=== PATIENT | female | born 1940 | race Caucasian/White ===

== ENCOUNTER 2016-12-17 12:47 | Day surgery (SDC) | payer MEDICARE ==
[~2016-12-17] VITALS: Ht 160 cm; Wt 78.9 kg
[~2016-12-17 12:47] MED LIST: 0.9% Sodium Chloride 1,000 ML IV PRN; CALC-190 PO; CHOL200049 PO; LACTOFERRIN PO; NITR0.4T6 SL; PANT40TA3 PO; Sodium Chloride LOK Flush 10 mL Syringe IV PRN; [UNRECOGNIZED DRUG - CODE] PO; [UNRECOGNIZED DRUG - OTHER] PO; amlodipine PO; fentaNYL-PF 50 mCg/mL 2 mL Inj IVPUSH PRN
[2016-12-17 13:47] VITALS: BP 157/65; PULSE 63; RESP 16; O2SAT 100
[2016-12-17] MEDS ORDERED: MULT-666 PO (13:55)
--- NOTE | 2016-12-17 15:23 | PCM.ENDEGD ---
EGD Date of Service: Dec 17, 2016 Physician Nathan Rodas MD Pre Procedure Diagnosis: Anemia Post Procedure Dx & Findings: Esophageal ulcer with scarring, fundic polyps, gastritis Procedure Esophagogastroduodenoscopy PROCEDURE IN DETAIL: After proper sedation, Olympus video endoscope was inserted into patient's mouth and esophagus was successfully intubated. Scope introduced esophagus. Esophagus showed normal shiny whitish mucosa consistent with squamous cell component. Z line was at 40 cm from the incisors. 3 cm hiatal hernia noted. Mild irregularity noted. There was 1.5 cm healing ulcer with surrounding scarring. Z line was irregular as well. Biopsies done at the healing ulcer site as well as the surrounding irregularity of the Z line. Scope further advanced to the stomach. Stomach showed atrophy redness consistent with gastritis. Biopsies done. Patient had multiple fundic polyps from the fundus to the mid body of the stomach. The largest one was about 1.5 cm in size. Sampling biopsies done.. Cardia fundus body antrum pylorus were all visualized. Retroflexion was done. Stomach was easily inflated and deflatable using air. Scope further advanced to the distal duodenum. Duodenum revealed normal villous structures with normal appearing folds without any mass ulcer erosion. 5 biopsies done to rule out celiac disease. Impression Hiatal hernia Irregular Z line with healing esophageal ulcer with surrounding scarring - most likely the cause of the anemia. Fundic polyp Gastritis Recommendation Await biopsies Decrease Protonix to 40 mg once a day Presedation Assessment Risks and Benefits Informed consent was obtained from the patient after all risks and benefits including but not limited to drug reaction, infection, pain, bleeding, perforation, as well as alternatives were discussed. Patient monitoring Continuous pulse oximetry, cardiac monitoring, blood pressure monitoring, IV access, and oxygen at 2L per nasal cannula. Periprocedural Fentanyl: Fentanyl 75mcg Incrementally Midazolam: Midazolam 4mg Incrementally Complications There were no periprocedural complications identified. Post Procedure Plan Post Procedure Recommendations 1. Restrict activities today. 2. Resume normal activities in the morning. 3. Resume medications. 4. GERD behavioral modification: - Avoid fatty, acidic, spicy, large meals - Do not lie down after meals - Do not eat or drink anything for at least 2 1/2 hours before going to bed at night - Discontinue tobacco and alcohol - Decrease or avoid caffeine - Avoid chocolate and mints - Decrease weight - Avoid aspirin and non steroidal anti-inflammatory agents (NSAID) such as Aleve, Advil, Mobic, Naproxen, Ibuprofen, etc 5. Add proton pump inhibitor. Take 30 minutes before 1st meal of the day. 6. Patient informed of normal post procedure side effects as bloating, drowsiness, blood streaking in the stool 7. If gastric biopsy reveal H.pylori, continue with appropriate treatment 8. If small bowel biopsy reveals celiac, continue with appropriate treatment 9. Please don't hesitate to call me with any questions Nathan Rodas MD Dec 17, 2016 15:23
--- NOTE | 2016-12-17 15:26 | PCM.ENDCOL ---
Colonoscopy Date of Service: Dec 17, 2016 Physician Nathan Rodas MD Pre Procedure Diagnosis: Screening anemia Post Procedure Dx & Findings: Polyp hemorrhoids diverticulosis AVM Procedure Colonoscopy PROCEDURE IN DETAIL: Prep adequate Withdrawal time 15 minutes After unremarkable rectal examination the Olympus video colonoscope was inserted patient's anal canal and was advanced to cecum. Landmarks were identified including the ileocecal valve and appendiceal orifice. Scope further advanced to the terminal ileum. Visualized terminal ileum showed normal villous structures without ulcer or mass erosions. Advanced 8 cm. Scope was withdrawn systematically. Visualized colonic mucosa showed healthy shiny mucosa with normal healthy-appearing vasculature. In the cecum, there was a 1 mm AVM. No bleeding noted. In the ascending colon, there was a 1 mm polyp which was completely physical forceps. The transverse colon there was a 3 mm polyp which was removed completely using cold snare. In the sigmoid colon and to some extent the proximal descending colon, several small to medium diverticuli noted. In the rectum retroflexion was done which showed hemorrhoids. Anal canal was inspected carefully on the way out and hemorrhoids noted. Impression AVM 1 Polyp 2 status post complete removal Diverticuli Hemorrhoids Normal terminal ileum Recommendation Repeat colonoscopy 5 years Diverticular diet Presedation Assessment Risks and Benefits Informed consent was obtained from the patient after all risks and benefits including but not limited to drug reaction, infection, pain, bleeding, perforation, as well as alternatives were discussed. Patient monitoring Continuous pulse oximetry, cardiac monitoring, blood pressure monitoring, IV access, and oxygen at 2L per nasal cannula. Complications There were no periprocedural complications identified. Post Procedure Plan Post Procedure Recommendations 1. Restrict activities today. 2. Resume normal activities in the morning. 3. Resume medications. 4. Patient informed of normal post procedure side effects as bloating, drowsiness, blood streaking in the stool. 5. average risk CRCS. If colon polyps come back as: -Hyperplastic- can repeat colonoscopy in 10 years -Tubular adenoma- repeat colonoscopy in 5 years -Tubulovillous/villous adenoma- repeat colonoscopy in 3 years -If any dysplasia- return to clinic as soon as possible 6. Please don't hesitate to call me with any questions. Nathan Rodas MD Dec 17, 2016 15:26
[2016-12-17 15:27] VITALS: BP 163/72; PULSE 77; RESP 16; O2SAT 100
[2016-12-17 15:39] VITALS: BP 156/71; PULSE 72; RESP 16; O2SAT 96
[2016-12-17 15:45] VITALS: BP 158/74; PULSE 75; RESP 16; O2SAT 94
--- NOTE | 2016-12-20 17:26 | PATH ---
SURGICAL PATHOLOGY Attending Physician:Nathan Rodas M.D. CASE STATUS: Signed Out PATIENT NAME: KAREN COREAS PID: [id number] : 1940 DATE COLLECTED:12/17/2016 00:00 SPECIMEN: 1: Duodenum, Biopsy 2: Stomach, Polyp, Biopsy 3: Gastric, Biopsy 4: Esophagus, Biopsy 5: Colon, Polyp 6: Colon, Polyp CLINICAL HISTORY: 1). DUODENUM BIOPSY 2). FUNDAL POLYPS 3). GASTRIC BIOPSY (RULE OUT H.PYLORI) 4). DISTAL ESOPHAGUS 5). ASCENDING COLON POLYP X1 6). TRANSVERSE COLON POLYP FINAL DIAGNOSIS: 1. Duodenum, Biopsy: Portions of duodenal mucosa with no diagnostic abnormality. Negative for active inflammation, features of sprue, dysplasia, and malignancy. 2. Fundal Polyp, Biopsy: Portions of fundic gland polyp. Negative for dysplasia and malignancy. 3. Gastric Biopsy: Portions of gastric antral and body-type mucosa with mild chronic gastritis. No definite H. pylori organisms identified by H&E stain. Negative for intestinal metaplasia, dysplasia, and malignancy. Immunohistochemistry studies pending; results will be reported as an addendum. 4. Distal Esophagus, Biopsy: Squamocolumnar junctional mucosa involved by intestinal metaplasia, consistent with Ventura's metaplasia, in the appropriate clinical and imaging setting. Negative for dysplasia and malignancy. 5. Ascending Colon Polyp, Biopsy: Portions of tubular adenoma x2; negative for high-grade dysplasia. Superficial portion of colorectal mucosa x1 with no diagnostic abnormality. 6. Transverse Colon, Polyp, Biopsy: Tubular adenoma; negative for high-grade dysplasia. ICD10: K63.5 GROSS DESCRIPTION: The specimen is received in six formalin filled containers labeled with the patient's name. 1). The specimen is labeled "duodenum" and consists of 2 portions of tissue which aggregate to 0.3 x 0.2 x 0.2 CM. The specimen is entirely submitted in cassette 1A. 2). The specimen is labeled "fundal polyp" and consists of 3 portions of tissue which aggregate to 0.3 x 0.3 x 0.2 CM. The specimen is entirely submitted in cassette 2A. 3). The specimen is labeled "gastric" and consists of 2 portions of tissue which aggregate to 0.3 x 0.3 x 0.2 CM. The specimen is entirely submitted in cassette 3A. 4). The specimen is labeled "distal esophagus" and consists of 2 portions of tissue which aggregate to 0.2 x 0.2 x 0.2 CM. The specimen is entirely submitted in cassette 4A. 5). The specimen is labeled "ascending colon polyp" and consists of 3 extremely tiny portions of tissue which aggregate to 0.1 x 0.1 x 0.1 CM. The specimen is entirely submitted in cassette 5A. 6). The specimen is labeled "transverse colon polyp" and consists of a 0.3 x 0.3 x 0.3 CM portion of tissue which is entirely submitted in cassette 6A. 12/18/2016[place] ICD-9 CODES: CPT CODES: 1: 78394 2: 26527 3: 31691, 95359 4: 29399 5: 04418 6: 29403 PROCEDURE/ADDENDA: Addendum SPI Addendum Diagnosis 2. Gastric Biopsy: Negative for H. pylori organisms by immunohistochemistry studies. Addendum Comment {Not Entered} Electronically Signed Out Joy Hdz MD Electronically Signed Out Joy Hdz MD [facility] Pathology [facility], [place] [address] Technical component performed at [facility], [facility] [address], [place], [address]
== END 2016-12-17 23:59 | disposition home or self-care (01) ==
LOC: END 12:47
PROVIDERS: ATTEND Internal Medicine
DX: Z12.11 Encounter for screening for malignant neoplasm of colon (principal); D12.2 Benign neoplasm of ascending colon; D12.3 Benign neoplasm of transverse colon; K57.30 Diverticulosis of large intestine without perforation or abscess without bleeding; K64.8 Other hemorrhoids; K55.20 Angiodysplasia of colon without hemorrhage; K29.50 Unspecified chronic gastritis without bleeding; K22.70 Barrett's esophagus without dysplasia; K31.7 Polyp of stomach and duodenum; K44.9 Diaphragmatic hernia without obstruction or gangrene; K21.0 Gastro-esophageal reflux disease with esophagitis; D50.9 Iron deficiency anemia, unspecified; I10 Essential (primary) hypertension
CPT/HCPCS: 43239; 45380; 45385; 99153; G0500; J2250; J3010; J7030